=== PATIENT | female | born 1960 ===

== ENCOUNTER 2021-05-28 06:12 | Day surgery (SDC) | payer BC ==
[~2021-05-28] VITALS: Ht 162.6 cm; Wt 69.2 kg
[~2021-05-28 06:12] MED LIST: CRUTCH4 USE; DILT120 PO; ESTRADIOL42.5 GM VAG; GABA300 PO; HUMALOG; HYDACE5325 PO; INSLI100I; INSLI100I SC; INSULANI; INSULANI SC; Keflex500 MG PO; LISHYD1012 PO; LOSA50 PO; PANT20 PO; PREG200 PO; PROG100 PO; PROM25 PO; RXOXYACE PO; VENL75ER PO
[2021-05-28] MEDS ORDERED: INSULIN LI100 UNIT/5 SC (06:21)
[2021-05-28] MEDS ORDERED: HUMALOG100 UNIT/1 SC (06:25)
== END 2021-05-28 08:05 | disposition home or self-care (01) ==
LOC: ORSCSDS 06:12
PROVIDERS: Ophthalmology
PROC: 08RK3JZ Replacement of Left Lens with Synthetic Substitute, Percutaneous Approach (ICD-10-PCS; principal; 2021-05-28 07:30)
DX: H25.12 Age-related nuclear cataract, left eye (principal); E11.9 Type 2 diabetes mellitus without complications; K21.9 Gastro-esophageal reflux disease without esophagitis; I10 Essential (primary) hypertension; Z79.4 Long term (current) use of insulin; Z79.899 Other long term (current) drug therapy
CPT/HCPCS: 82947; J2001; J2250; J3301; J7040; V2632

== ENCOUNTER 2021-06-11 07:55 | Day surgery (SDC) | payer BC ==
[~2021-06-11] VITALS: Ht 162.6 cm; Wt 67.7 kg
[~2021-06-11 07:55] MED LIST changes: +HUMALOG100 UNIT/1 SC; +INSULIN LI100 UNIT/5 SC
--- NOTE | 2021-06-11 12:32 | NUR ---
06/11/21 1232 Janny Limon 0836 TETRACAINE DROP IN RIGHT EYE. [id number] IN RIGHT EYE.
== END 2021-06-11 10:17 | disposition home or self-care (01) ==
LOC: ORSCSDS 07:55
PROVIDERS: Ophthalmology
PROC: 08RJ3JZ Replacement of Right Lens with Synthetic Substitute, Percutaneous Approach (ICD-10-PCS; principal; 2021-06-11 09:30)
DX: H25.11 Age-related nuclear cataract, right eye (principal); E10.8 Type 1 diabetes mellitus with unspecified complications; Z79.4 Long term (current) use of insulin
CPT/HCPCS: 82947; J2001; J2250; J3010; J3301; J7040; V2632

== ENCOUNTER → 2022-05-28 | Outpatient (CLI) | payer BC ==
[2022-05-29 15:10] LABS: HPV 16 Negative (Negative); HPV 18 Negative (Negative); HPV OTHER HR TYPES Negative (Negative)
== END | disposition home or self-care (01) ==
LOC: RAD SHORT 10:30
PROVIDERS: Obstetrics & Gynecology
DX: Z01.419 Encounter for gynecological examination (general) (routine) without abnormal findings (principal)
CPT/HCPCS: 87624; G0123